=== PATIENT | male | born 1945 | race Caucasian/White ===

== ENCOUNTER 2017-03-10 22:32 | Inpatient (IN) ==
[2017-03-10] MEDS ORDERED: SALINE FLUSH 10ml SYRINGE IVF PRN (22:54)
[2017-03-10] MEDS ORDERED: GI COCKTAIL 30 ML PO ONE (22:54)
[2017-03-10] MEDS ORDERED: NS 1,000 ML IV ONE (22:55)
--- NOTE | 2017-03-10 22:58 | Emergency Department Report ---
Abdominal Pain HPI - General Stated Complaint: stomach pain Time Seen by Provider: 03/10/17 22:37 Source: patient Mode of arrival: ambulatory Limitations: no limitations - History of Present Illness HPI narrative: He is here from out of town this week. He had onset of abdominal pain 2 days ago and it has not improved much at all. 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 He states that he did recover well from that and was not evaluated after the incident. He has vomited today. Has a history of bowel obstruction in the past. C/o having a foul tasting bile taste in this mouth. Denies any fever or chills. MD complaint: abdominal pain Onset (ago): day(s) (for the last 2 days) Consistency: constant Location: diffuse Severity: moderate Quality: sharp Radiation: none Migration to: no migration Relieving factors: nothing Exacerbating factors: nothing Associated symptoms: nausea, vomiting, constipation - Related Data Home Medications Medication Instructions Recorded Confirmed Allopurinol [Zyloprim] 1 tab PO DAILY 03/10/17 03/10/17 Doxazosin Mesylate [Cardura] 4 mg PO DAILY 03/10/17 03/10/17 Tamsulosin [Flomax] 1 tab PO HS 03/10/17 03/10/17 Allergies Allergy/AdvReac Type Severity Reaction Status Date / Time shrimp Allergy Severe Anaphylactic Verified 03/10/17 23:23 Shock Review of Systems Constitutional: Denies: fever, chills, weakness Cardiovascular: Denies: chest pain, palpitations, dyspnea on exertion, edema Respiratory: Denies: cough, dyspnea, wheezes Gastrointestinal: Reports: abdominal pain, nausea, vomiting, constipation. Denies: diarrhea Integumentary: Denies: rash Neurological: Denies: headache, weakness, numbness, paresthesias PFSH HTN Surgical History: appendectomy. Small bowel obstruction secondary to adhesions. Known history of hernia due to the appendectomy surgery - Social History Smoking status: Never smoker Substance use type: does not use Alcohol intake frequency: does not drink Physical Exam - Limitations Limitations: no limitations - General General appearance: alert, in no apparent distress - Normal Exams: Neck:: Full range of motion, without adenopathy, JVD, bruits or thyromegaly Chest/Respirations:: Clear all luna, with good airflow, and symmetry bilaterally Cardiovascular:: Regular rate and rhythm, without murmur or gallop, Pulses 2+ all extremities, capillary refill, <2 seconds all extremities Abdomen:: Bowel sounds positive, no hepatosplenomegaly, masses or bruits noted Lymphatic:: No lymphadenopathy, or lymphedema noted Integumentary:: No rashes, hives, or bruising noted Neurological:: Patient is alert, and oriented Psychiatric:: Patient exhibits, appropriate attention, emotion and affect - Abdominal Exam Abdominal exam: Present: soft, distention, tenderness (TTP in all quadrants), normal bowel sounds. Absent: guarding, rebound Abdominal Pain - [facility] Narrative Medical decision making narrative: Ct scan does show an obstruction. Labs are stable, WBC is elevated. Noted 2nd degree AV block on EKG. He does deny any known history of heart block and denies any cardiac history. Did call and discuss CT findings with Dr Freitas. He does agree to admission with consultation for the obstruction. Will go ahead and place an NG tube as he has vomited in ER bile emesis. Did call and speak with Dr Mensah as well about the new diagnosis of the 2nd degree AV block. He does agree that it appears to be an AV block and does agree to consult with patient tomorrow. Does request CCU bed for admission. Did call and discuss HPI, labs, EKG, CT scan, and consults with Dr Swanson with the hospitalist group. He will admit to CCU at this time. - Differential Diagnosis Differential diagnosis: Likely: abdominal pain, constipation, diverticulitis, gastroenteritis, small bowel obstruction - Lab Data Attestation: I reviewed the patient's lab results. Result diagrams: 03/10/17 23:09 03/10/17 23:09 - Radiology Data Attestation: I reviewed the patient's radiology results. Ct abdomen/pelvis: mid small bowel obstruction which appears secondary to a ventral abdominal wall hernia. There are bilateral supraumbilical ventral abdominal wall hernias. The right-sided hernia appears to be the source of the obstruction. Disposition Clinical Impression: Small bowel obstruction, 2nd degree AV block Disposition: To [facility] Acute Care Condition: Stable Prescriptions: No Action Tamsulosin [Flomax] 1 tab PO HS Allopurinol [Zyloprim] 1 tab PO DAILY Doxazosin Mesylate [Cardura] 4 mg PO DAILY Time of Disposition: 00:21 - Seen By: midlevel
[2017-03-11] MEDS ORDERED: METOCLOPRAMIDE 10mg/2ml INJECTION IVP ONE (00:10)
[2017-03-11] MEDS ORDERED: METOCLOPRAMIDE 10mg/2ml INJECTION IVP PRN (01:02)
[2017-03-11] MEDS ORDERED: MORPHINE SULFATE 4mg INJECTION IVP PRN (01:02)
[2017-03-11] MEDS ORDERED: ONDANSETRON 4 MG/2 ML INJECTION IVP PRN (01:02)
[2017-03-11] MEDS: PANTOPRAZOLE 40 MG INJECTION IVP SCH ×2 (01:36→14:45)
[2017-03-11] MEDS: NS 1,000 ML IV SCH ×3 (01:36→22:29)
[2017-03-11 01:54] VITALS: BMI 39.8
--- NOTE | 2017-03-11 01:55 | History & Physical Report ---
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 (played with Kalia Tavongm etc). Anyway he had an appendectomy young in life and approximately 12 years ago had a bowel obstruction that resulted in adhesiolysis. Since then he has had an abdominal wall hernia related to previous surgeries. 3 days ago he had onset of abdomen pain with nausea and anorexia. He was in contact with a local surgeon (friend) who recommenced that he be seen in local ED for further assessment. 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 He was brought to the ED where his initial cardiac evaluation demonstrated a mobitz 2 rhythm without ischemia. He further had a CT of his abdomen which demonstrated a SBO. ED contacted surgeon who recommended admission and he would see in consult. ED consulted cardiology who supported the interpretation of a mobitz 2. Recommended admission into the ICU and would see in the am. The patient has never had a syncopal episode and never been informed that he had an arrhythmia in his heart. Review of Systems Review of systems: no headache, no change in vision, no neck pain, no chest pain, mild shortness of breath with out cough, did not feel heart palpitations, nasuea and has been constipated for 3 days, no focal neuro complaints. 10 point ROS otherwise neg except for outlined above. [facility] Medical History Updates: SBO, HTN, gout, BPH, morbid obesity Surgical History: appendectomy. Small bowel obstruction secondary to adhesions. Known history of hernia due to the appendectomy surgery - Social History Smoking status: Never smoker Substance use type: does not use Alcohol intake: former Alcohol intake frequency: does not drink Housing: house Medications Home Medications Medication Instructions Recorded Confirmed Type Allopurinol [Zyloprim] 1 tab PO DAILY 03/10/17 03/10/17 History Doxazosin Mesylate [Cardura] 4 mg PO DAILY 03/10/17 03/10/17 History Tamsulosin [Flomax] 1 tab PO HS 03/10/17 03/10/17 History Allergies Allergy/AdvReac Type Severity Reaction Status Date / Time shrimp Allergy Severe Anaphylactic Verified 03/10/17 23:23 Shock Exam Vital Signs: Temperature 98.2 F 03/10/17 22:40 Pulse Rate 80 03/11/17 00:45 Respiratory Rate 20 03/11/17 00:45 Blood Pressure 154/90 H 03/11/17 00:45 Pulse Oximetry 93 03/11/17 00:45 Telemetry Rhythm: Second Degree AV Block Type II Mobitz I - Constitutional Present: moderate distress, well nourished, well developed, morbidly obese, cooperative - Routine HEENT Exam Head: Present: normocephalic, atraumatic. Absent: cushingoid faces Eye: Present: EOMI, conjunctivae pink ENT: Present: mucous membranes dry - Routine Neck Exam Present: supple, full ROM. Absent: JVD - Routine Respiratory Exam Present: CTA bilaterally. Absent: prolonged expiratory phase - Routine Cardiovascular Exam Present: RRR, S1, S2, no murmur. Absent: rubs, S3 - Routine Abdominal Exam Comments: abdomen is obese, bowel sounds decreased but occasionally heard, mild tender to palpation (1 L removed from stomch with emesis and ng tube when I saw), - Routine Extremities Exam Present: full ROM - Routine Back/Spine/Pelvis Exam Back/Spine: Present: full ROM - Routine Skin Exam Present: intact - Routine Neurological Exam Present: alert, oriented X3. Absent: motor deficit - Routine Psychiatric Exam Present: normal affect, normal thought process Results - Labs CBC & Chem 7: 03/10/17 23:09 03/10/17 23:09 - ABG Interpretation Additional comments: EKG mobitz 2 (confirmed by cardiology) CT abdomen and pelvis with SBO, ventral hernia with bowel in hernia, no incarceration identified Assessment and Plan (1) Small bowel obstruction Status: Acute (2) 2nd degree AV block Status: Acute (3) Hypertension Status: Acute (4) Morbid obesity Status: Acute (5) BPH (benign prostatic hyperplasia) Status: Acute (6) Gout Status: Acute Assessment and Plan: 1. admit into the ICU 2. rule out with serial enzymes and consult cardiology for further evaluation. Would anticipate at minimum an echo to be done. Probable need nuc prior to any surgery if surgery is needed 3. NPO with NG low intermittent suction. Obviously the nidus for obstruction is reocurrance of adhessions. 1L already removed greater than 50% chance will need surgery to resolve. would like to avoid surgery for multiple reasons, not the least of which is cardaic arrhythmia. Continue NPO, defer to surgery for further assessment. Note will repeat labs this am, will check TSH 4. Patient will have cardura held and will use hydralazine prn 5. Patient is mild hyperglycemic, check a1c along with lipid panel 6. SCD, hold lovenox in case urgent surgery 7. protonix for PPI prophylaxis This patient is moderately ill. admission to ICU indicated to watch rhythm more closely. Defer to Cardiology and Surgery for next steps DVT Prophylaxis: SCD's GI Prophylaxis: Protonix Resuscitation Status: Full Code - Time spent with patient Time with patient PN: 50 minutes Hospital Course Summary Disclaimer: The visit summary below is not to be considered part of the above Progress Note. <Enmanuel Mcnair P - Last Filed: 03/16/17 16:01> History of Present Illness Date: 03/16/17 [facility] Patient Stated Medical History Cardiac Arrhythmia Yes: current Hypertension Yes Hiatal Hernia Yes Obstructive Bowel Yes Hx Benign Prostatic Yes Hyperplasia Other Yes: urinary retention Other Musculoskeletal Yes: gout Family History: Reviewed and non-contributory Exam Vital Signs: Temperature 98.7 F 03/11/17 16:00 Pulse Rate 79 03/11/17 16:15 Respiratory Rate 24 03/11/17 16:15 Blood Pressure 190/87 H 03/11/17 16:02 Pulse Oximetry 97 03/11/17 16:15 Height/Weight/BMI: Height 6 ft 1 in Weight 137 kg Body Mass Index 39.8 Results - Labs CBC & Chem 7: 03/16/17 04:10 03/16/17 04:10 Assessment and Plan (1) Small bowel obstruction Status: Resolved (2) 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 (3) Hypertension Status: Chronic (4) Morbid obesity Status: Chronic (5) BPH (benign prostatic hyperplasia) Status: Chronic (6) Gout Status: Chronic Assessment and Plan: Fully commented document already signed. Agree with above contents. Please see 19:14 03/11/17 H&P Hospital Course Summary Disclaimer: The visit summary below is not to be considered part of the above Progress Note.
[2017-03-11] MEDS ORDERED: MORPHINE SULFATE 2mg INJECTION IVP PRN (07:00)
--- NOTE | 2017-03-11 08:00 | CT Scan Report ---
EXAM: CT abdomen pelvis wo con DATE: 03/10/2017 HISTORY: abdominal pain COMPARISON: No prior studies are available for comparison TECHNIQUE: CT images were obtained of the abdomen and pelvis without IV contrast. The current CT scan was performed using radiation dose-reduction techniques. FINDINGS: LUNG BASES: No acute parenchymal process is identified. There is a calcified granuloma at the right lung base. Calcified right hilar and subcarinal lymph nodes are visualized. The heart appears mildly enlarged. There is no pericardial effusion. LIVER: Mildly enlarged measuring 19.8 cm showing no obvious discrete lesions on this unenhanced exam. SPLEEN: Mildly enlarged measuring 14.9 cm showing several scattered calcified splenic granulomas. GALLBLADDER: Surgically absent. PANCREAS: Unenhanced appearance is mildly atrophic and otherwise unremarkable. ADRENAL GLANDS: Not enlarged. KIDNEYS: Symmetrical size showing a several bilateral tiny nonobstructing renal calculi. There is nonspecific bilateral perinephric stranding. There is is no evidence of hydronephrosis, hydroureter or ureterolith. VASCULAR: The abdominal aorta and IVC are normal caliber. There is mild scattered plaque formation the abdominal aorta and iliac arteries. LYMPH NODES: No pathologic adenopathy is seen in the abdomen or pelvis. STOMACH BOWEL LOOPS: Stomach is moderately distended with ingested fluid. There is a small hiatal hernia. There is mild dilatation of mid small bowel loops secondary to bilateral para midline supra umbilical ventral hernias have both small bowel and mesenteric fat and involvement. The right-sided ventral hernia is associated with the dilated small bowel loops with air-fluid levels. The right-sided ventral hernia not does not appear to be associated with any obstructive changes of the involved small bowel creating small bowel obstruction. Colonic loops are normal caliber showing moderate retained fecal material. Several diverticula are seen along the course of the colon without evidence of diverticulitis. Appendix is normal. URINARY BLADDER: Normal size showing no wall thickening or intraluminal filling defects. PROSTATE: Enlarged measuring 6.9 x 8.1 cm. There is associated mass effect on the base of the bladder. OSSEOUS STRUCTURES: Advanced degenerative changes are seen at the lumbosacral junction and there are otherwise mild to moderate degenerative disc changes in the lumbar spine region. Moderate degenerative changes are seen in the lower thoracic spine. PERITONEAL CAVITY: No free air or free fluid ABDOMINAL WALL: Bilateral midline supraumbilical ventral hernias which demonstrate mesenteric fat and small bowel involvement. The right-sided ventral hernia associated with the dilated small bowel loops and is likely be etiology of small bowel obstruction. IMPRESSION: 1. Mid small bowel obstruction which appears to be secondary to a ventral abdominal wall hernia. There are bilateral supraumbilical ventral hernias the right-sided hernia appears to be the site of the obstruction. 2. Prostamegaly. 3. Tiny nonobstructing bilateral renal calculi. 4. Cardiomegaly. 5. Old granulomatous disease. 6. Gallbladder is surgically absent. 7. Mild hepatosplenomegaly. A pulmonary report was provided by [facility] medially following the initial review of this examination 03/10/2017 11:33 PM .
[2017-03-11] MEDS ORDERED: PNEUMOCOCCAL 13 VACCINE 0.5ml INJECTION IM ONE (10:00)
[2017-03-11] MEDS ORDERED: INFLUENZA VAC High Dose 2017-18 (Fluzone HD*) (>=65yo) 0.5ml IM ONE (10:00)
[2017-03-11] MEDS: CLINDAMYCIN PB 300 MG/50 ML BAG IV SCH ×3 (10:48→22:28)
[2017-03-11] MEDS: SORE THROAT SPRAY 20ml PO PRN ×2 (12:19→15:00)
[2017-03-11] MEDS: HYDRALAZINE 20 MG/ML INJECTION IVP PRN ×2 (14:46→22:27)
[2017-03-11] MEDS: LISINOPRIL 10 MG TABLET PO SCH ×2 (18:25→20:55)
--- NOTE | 2017-03-11 19:16 | History & Physical Report ---
History of Present Illness Date: 03/12/17 Chief complaint: syncopal HPI: This 72-year-old man who had an episode of lightheadedness and syncope yesterday was brought into the emergency room. Found to have new onset obits type II heart block. Allgood pain from prior to syncopal episode was relative to the colicky chronic abdominal hernia. Seen this morning after being brought in he is comfortable and has no complaints. Abdominal pain is empty significantly in he is denying any chest pain diaphoresis nausea or shortness of breath. The following notation by Dr. 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 (played with Kalia Horne etc). Anyway he had an appendectomy young in life and approximately 12 years ago had a bowel obstruction that resulted in adhesiolysis. Since then he has had an abdominal wall hernia related to previous surgeries. 3 days ago he had onset of abdomen pain with nausea and anorexia. He was in contact with a local surgeon (friend) who recommenced that he be seen in local ED for further assessment. 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 He was brought to the ED where his initial cardiac evaluation demonstrated a mobitz 2 rhythm without ischemia. He further had a CT of his abdomen which demonstrated a SBO. ED contacted surgeon who recommended admission and he would see in consult. ED consulted cardiology who supported the interpretation of a mobitz 2. Recommended admission into the ICU and would see in the am. The patient has never had a syncopal episode and never been informed that he had an arrhythmia in his heart. Review of Systems - Constitutional Constitutional: Absent: fever(s), night sweats, weight loss - EENMT Eyes: Absent: diplopia Mouth/Throat: Present: pain, caries. Absent: sores, ulcers - Cardiovascular Cardiovascular: Present: syncope. Absent: chest pain, palpitations Vascular: Absent: intermittent claudication - Respiratory Respiratory: Absent: cough, dyspnea, dyspnea on exertion - Gastrointestinal Gastrointestinal: Present: abdominal pain. Absent: change in stool character, coffee ground emesis, diarrhea - Genitourinary Genitourinary: Absent: dysuria, flank pain - Musculoskeletal Musculoskeletal: Absent: abnormal gait, deformity - Neurological Neurological: Present: dizziness. Absent: confusion, convulsions, focal weakness - Psychiatric Psychiatric: Absent: abnormal sleep pattern, depression - Endocrine Endocrine: Absent: excessive sweating, palpitations PFSH Patient Stated Medical History Cardiac Arrhythmia Yes: current Hypertension Yes Hiatal Hernia Yes Obstructive Bowel Yes Hx Benign Prostatic Yes Hyperplasia Other Yes: urinary retention Other Musculoskeletal Yes: gout Medical History Updates: SBO, HTN, gout, BPH, morbid obesity. I agree with the social medical and surgical assessment by Dr. Swanson with the addition of noncontributory family history Surgical History: appendectomy. Small bowel obstruction secondary to adhesions. Known history of hernia due to the appendectomy surgery Family History: Family history reviewed and noncontributory - Social History Smoking status: Never smoker Medications Home Medications Medication Instructions Recorded Confirmed Type Allopurinol [Zyloprim] 1 tab PO DAILY 03/10/17 03/10/17 History Doxazosin Mesylate [Cardura] 4 mg PO DAILY 03/10/17 03/10/17 History Tamsulosin [Flomax] 1 tab PO HS 03/10/17 03/10/17 History Allergies Allergy/AdvReac Type Severity Reaction Status Date / Time shrimp Allergy Severe Anaphylactic Verified 03/10/17 23:23 Shock Exam Vital Signs: Temperature 98.7 F 03/11/17 16:00 Pulse Rate 79 03/11/17 16:15 Respiratory Rate 24 03/11/17 16:15 Blood Pressure 190/87 H 03/11/17 16:02 Pulse Oximetry 97 03/11/17 16:15 Telemetry Rhythm: Second Degree AV Block Type II Mobitz I Height/Weight/BMI: Height 6 ft 1 in Weight 137 kg Body Mass Index 39.8 - Constitutional Present: well nourished, well developed, obese - Routine HEENT Exam Head: Present: normocephalic, atraumatic Eye: Present: EOMI, normal accommodation ENT: Present: mucous membranes moist, dentition normal - Routine Neck Exam Present: supple. Absent: JVD - Routine Chest/Breast/Axilla Exam Chest wall: Absent: tenderness - Routine Respiratory Exam Present: CTA bilaterally. Absent: dyspnea, wheezes - Routine Cardiovascular Exam Present: RRR, S1, S2. Absent: murmur - Routine Abdominal Exam Present: soft, normoactive bowel sounds, tenderness, hernia, surgical scars - Routine Extremities Exam Present: normal capillary refill - Routine Skin Exam Present: dry, warm - Routine Neurological Exam Present: alert, oriented X3, CN II-XII intact - Routine Psychiatric Exam Present: normal affect Results - Labs CBC & Chem 7: 03/12/17 12:23 03/11/17 04:41 Assessment and Plan (1) Small bowel obstruction Current visit: Yes Status: Acute (2) 2nd degree AV block Current visit: Yes Status: Acute (3) Hypertension Current visit: Yes Status: Acute (4) Morbid obesity Current visit: Yes Status: Acute (5) BPH (benign prostatic hyperplasia) Current visit: Yes Status: Acute (6) Gout Current visit: Yes Status: Acute Assessment and Plan: Read and appreciate note by Dr. Swanson. Patient will remain in the ICU due to elevated risk of declining into terminal arrhythmia. Continue hydralazine for pressure control abdominal discomfort is largely resolved with NG tube. Although patient does have an elevated white count appears to be no source of infection lab work is been reassuring. We will repeat CBC and metabolic panel tomorrow have discussed the case with Dr. Mensah earlier in the day Dr. Hahn has seen for consultation. I believe he intends conservative treatment DVT Prophylaxis: SCD's Resuscitation Status: Full Code - Time spent with patient Time with patient PN: 50 minutes Hospital Course Summary Disclaimer: The visit summary below is not to be considered part of the above Progress Note.
--- NOTE | 2017-03-11 20:19 | Cardiology Consult Note ---
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 No prior syncope or presyncope He climbs 2 flights of stairs at home without angina. He says he used to exercise on a stationary bike for about 10-15 minutes about a year ago without angina. He currently does not exercise. 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 Noted to have elevated white count no fever or chills. Positive for constipation positive for nausea and vomiting improved only after NG tube insertion. Remains nothing by mouth. Has history of small bowel obstruction required the previous surgery. History of ruptured appendix in 1976. History of ventral hernia. He has a elevated white count without fever or chills no symptoms suggestive of a respiratory urinary or skin infection. He is been treated With IV clindamycin. No known prior heart disease. Never had a stress test or heart catheterization. Admitted to hospitalist service for further management. I was asked to consult regarding second-degree AV block and presyncope Review of Systems All systems PM: 10-point ROS was reviewed, no additional remarkable complaints except - Cardiovascular Cardiovascular: Absent: chest pain, palpitations, syncope, orthopnea, edema, cyanosis - Respiratory Respiratory: Absent: dyspnea, hemoptysis - Gastrointestinal Gastrointestinal: Present: abdominal pain, constipation - Psychiatric Psychiatric: Absent: anxiety, depression [facility] Patient Stated Medical History Cardiac Arrhythmia Yes: current Hypertension Yes Hiatal Hernia Yes Obstructive Bowel Yes Hx Benign Prostatic Yes Hyperplasia Other Yes: urinary retention Other Musculoskeletal Yes: gout Medical History Updates: SBO, HTN, gout, BPH, morbid obesity. I agree with the social medical and surgical assessment by Dr. Swanson with the addition of noncontributory family history Surgical History: appendectomy. Small bowel obstruction secondary to adhesions. Known history of hernia due to the appendectomy surgery - Social History Smoking status: Never smoker Substance use type: does not use Alcohol intake frequency: holidays/special occasions only Household members: spouse Current residence: Apartment/Private Home Medications Home Medications Medication Instructions Recorded Confirmed Type Allopurinol [Zyloprim] 1 tab PO DAILY 03/10/17 03/16/17 History Doxazosin Mesylate [Cardura] 4 mg PO DAILY 03/10/17 03/16/17 History Tamsulosin [Flomax] 0.4 tab PO HS 03/10/17 03/16/17 History Allergies Allergy/AdvReac Type Severity Reaction Status Date / Time shrimp Allergy Severe Anaphylactic Verified 03/16/17 20:02 Shock Exam Vital signs: Temperature 98.7 F 03/11/17 16:00 Pulse Rate 79 03/11/17 16:15 Respiratory Rate 24 03/11/17 16:15 Blood Pressure 190/87 H 03/11/17 16:02 Pulse Oximetry 97 03/11/17 16:15 - Constitutional no acute distress, obese - Routine HEENT Exam Head: Present: normocephalic, atraumatic Eye: Present: EOMI, PERRL ENT: Present: mucous membranes moist - Routine Neck Exam Present: supple, normal carotid upstroke. Absent: JVD, carotid bruit, lymphadenopathy, thyromegaly - Routine Respiratory Exam Present: CTA bilaterally - Routine Cardiovascular Exam Present: irregular rhythm. Absent: RRR - Routine Abdominal Exam Present: soft, normoactive bowel sounds, tenderness (mild). Absent: rebound, guarding, rigid - Routine Extremities Exam Present: no edema. Absent: cyanosis, clubbing, edema - Routine Skin Exam Present: intact. Absent: cyanosis, erythema - Routine Neurological Exam Present: alert, oriented X3, CN II-XII intact, vision grossly intact, hearing grossly intact, normal speech. Absent: sensory deficit, motor deficit, facial asymmetry - Routine Psychiatric Exam Present: normal affect, normal thought process, cooperative, good judgment Results 03/16/17 04:10 03/16/17 04:10 Cardiac Enzymes 03/11/17 03/11/17 03/11/17 Range/Units 04:41 04:41 10:48 AST 19 (17-59) U/L Troponin I < 0.012 < 0.012 (0-0.12) ng/ml Lipids 03/11/17 Range/Units 04:41 Triglycerides 78 (40-160) MG/DL Cholesterol 190 (132-199) MG/DL HDL Cholesterol 37 L (40-60) MG/DL Cholesterol/HDL Ratio 5.1 H (0-5.0) RATIO CBC 03/11/17 Range/Units 04:41 WBC 13.7 H (4.5-11.0) T/MM3 RBC 5.10 (4.50-5.90) M/MM3 Hgb 16.2 (13.5-17.5) GM/DL Hct 47.9 (41-53) % Plt Count 133 (130-400) T/MM3 Neut # (Auto) 11.4 H (1.8-7.7) T/MM3 Lymph # (Auto) 1.3 (1-4.8) T/MM3 [place] # (Auto) 1.0 H (0-0.8) T/MM3 Eos # (Auto) 0.0 (0-0.5) T/MM3 Baso # (Auto) 0.0 (0-0.2) T/MM3 Comprehensive Metabolic Panel 03/11/17 Range/Units 04:41 Sodium 142 (134-144) MEQ/L Potassium 3.9 (3.6-5) MEQ/L Chloride 106 (98-107) MEQ/L Carbon Dioxide 27 (22-30) MEQ/L BUN 12.0 (9-20) MG/DL Creatinine 1.0 (0.8-1.5) MG/DL Glucose 127 H (75-110) MG/DL Calcium 8.2 L (8.4-10.2) MG/DL AST 19 (17-59) U/L ALT 41 (21-72) U/L Alkaline Phosphatase 75 (38-126) U/L Total Protein 6.7 (6.3-8.2) G/DL Albumin 3.7 (3.5-5.0) G/DL Intake and Output 03/11/17 03/11/17 03/11/17 06:59 14:59 22:59 Intake Total 440 / 1440 610 / 610 50 / 50 Output Total 1275 / 1275 490 / 490 100 / 100 Balance -835 / 165 120 / 120 -50 / -50 Intake: IV 440 / 1440 610 / 610 50 / 50 Clindamycin Pb 300 mg In 50 / 50 50 / 50 50 ml @ 100 mls/hr IV Q6H SAM Rx#:[id number] Ns 1,000 ml @ 100 mls/hr 440 / 1440 560 / 560 IV .Q10H SAM Rx#: [id number] Output: Urine 375 / 375 490 / 490 100 / 100 Gastric Drainage 900 / 900 Right Nare 900 / 900 Other: Urine Appearance Clear Clear Clear Urine Color Straw Straw Straw Weight 137 kg EKG interpretations - Dysrhythmias Sinus rhythms and dysrhythmias: sinus rhythm - Blocks, axis, hypertrophy, ST abn AV and intraventricular conduction: 2 to 1 AV block, Mobitz I 2 AV block ( Wenckebach block), right bundle branch block (fixed/intermittent, complete/ incomplete) (no acute changes of ischemia or pathological Q waves) Assessment and Plan - Assessment and Plan (1) 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 2:1 AV block and Wenckebach with underlying RBBB. Symptomatic with near syncope. A permanent pacemaker implant is recommended. Detailed Discussion with Drs. Moraes and Paz regarding timeline of the procedure. Due to leukocytosis, small bowel obstruction that might need surgical intervention, and IV antibiotics on board would tentatively plan on a permanent pacemaker implant on Wednesday. Should a surgery for a small bowel obstruction be needed, then we would place a temporary pacemaker wire to allow him to undergo anesthesia and surgery. At this time he exhibits a stable rhythm and no immediate need for that. Risks and benefits and indications and alternatives of permanent pacemaker implant discussed at length with the patient is in agreement. Risks including but not limited to bleeding lifelong risk of infection and pneumothorax leading chest tube and rarely life-threatening or fatal complications. Also discussed with him and stated future and need for pacemaker battery replacements in the years to come. He is in agreement. Will obtain an echocardiogram regarding LV function and wall motion. We'll repeat 12-lead EKG and make sure there is a troponin level this admission. Also advised to undergo a stress test most likely can be done as an outpatient when he returns to his home state of [place]. (2) Small bowel obstruction Status: Resolved (3) Hypertension Status: Chronic Add lisinopril Elected not to use amlodipine in order not to impact GI motility IV hydralazine when necessary for reliable bioavailability (4) Morbid obesity Status: Chronic (5) BPH (benign prostatic hyperplasia) Status: Inactive (6) Gout Status: Chronic Hospital Course Summary Disclaimer: The visit summary below is not to be considered part of the above Progress Note.
[2017-03-12] MEDS ORDERED: FALL RISK - PHARMACY CONSULT XX ONE (02:34)
[2017-03-12] MEDS: CLINDAMYCIN PB 300 MG/50 ML BAG IV SCH ×4 (03:51→22:25)
[2017-03-12] MEDS: PANTOPRAZOLE 40 MG INJECTION IVP SCH ×2 (04:53→12:34)
[2017-03-12] MEDS ORDERED: DIATRIZOATE MEGLUMINE/SOD. (66%/10%) 120ml SOLN ONE (09:06)
[2017-03-12] MEDS: NS 1,000 ML IV SCH ×4 (09:34→21:00)
--- NOTE | 2017-03-12 09:39 | Echocardiogram ---
DATE OF SERVICE 03/11/2017 INDICATION Presyncope. Second-degree AV block. TECHNICAL QUALITY Technically good 2-D, M-mode, Doppler echocardiographic images were submitted for interpretation. FINDINGS 1. CARDIAC CHAMBERS. All cardiac chamber measurements are normal. Aortic root diameter is normal. RV size and contractility appear normal. 2. LEFT VENTRICLE. Wall thickness is normal. Wall motion analysis is normal. Systolic function is normal. EF is estimated about 60%. There is grade I/IV diastolic dysfunction present. 3. VALVES. Aortic and mitral valve exhibit mild sclerotic changes. Valve excursion is normal. Tricuspid valve structure and motion appear normal. Normal valve excursion. 4. DOPPLER. Analysis shows mild to moderate tricuspid regurgitation with normal systolic PA pressure, trace pulmonic insufficiency, trace mitral regurgitation. Peak flow velocity at the aortic valve of 1.8 m/sec with mean pressure gradient of only 8 mmHg compared with 1.2 m/sec at the LVOT level, which is indicative of nonsignificant aortic stenosis. 5. No evidence of pericardial effusion, intracardiac masses, thrombi, vegetations or shunts. Limited view of IVC suggests normal central venous pressure. IMPRESSION 1. Normal LV systolic function, EF of 60% with mild diastolic dysfunction. 2. Mild sclerotic valvular disease without significant aortic valve stenosis. MTDD
--- NOTE | 2017-03-12 09:58 | XRay Report ---
EXAM: XR KUB w upright DATE: 03/12/2017 8:01 AM Encounter: Initial INDICATION: Follow Bowel Obstruction COMPARISON: Abdominal CT 03/10/17 Technique: Upright and supine AP abdominal radiographs were obtained. Findings: Enteric tube in place with tip in the proximal stomach. Mild to moderate colonic gas and stool. Mildly prominent gas filled small bowel loops in the left mid abdomen. No intraperitoneal free air. Cholecystectomy clips noted. No acute osseous abnormality identified. The visualized lung bases appear clear. Impression: Mildly prominent gas filled small bowel loops in the left mid abdomen with mild to moderate colonic gas and stool present, with an overall non-obstructive bowel gas pattern radiographically. .
[2017-03-12] MEDS: DOXAZOSIN 4 MG TABLET PO SCH (12:27)
[2017-03-12] MEDS: LISINOPRIL 10 MG TABLET PO SCH ×2 (12:28→22:23)
[2017-03-12] MEDS: ALLOPURINOL 300 MG TABLET PO SCH (12:29)
[2017-03-12] MEDS: COLCHICINE 0.6 MG TABLET PO SCH (12:31)
--- NOTE | 2017-03-12 13:27 | XRay Report ---
EXAM: XR small bowel follow through DATE: 03/12/2017 12:00 AM ENCOUNTER: Initial HISTORY: small bowel obstruction COMPARISON: Abdominal radiographs of the same day, abdominal CT 03/10/2017 TECHNIQUE: Single contrast Gastrografin small bowel follow-through was performed with administration of the contrast through the patient's indwelling enteric tube. Sequential overhead evaluation was performed. FINDINGS: The abdominal radiograph of the same day showed a nonobstructive bowel gas pattern. SMALL BOWEL FOLLOW THROUGH FINDINGS: There is normal course and caliber of the duodenal sweep. The ligament of Treitz is seen to the left of the midline. Contrast traverses the small bowel in approximately 1 hour and 15 minutes. The mucosal folds, caliber and position of the small bowel are unremarkable. No constant intraluminal filling defects or areas of stricture are seen. The terminal ileum appears unremarkable. IMPRESSION: Passage of contrast through the small bowel and into the colon within one hour and 15 minutes, without evidence of obstruction. .
--- NOTE | 2017-03-12 13:46 | Progress Note ---
DATE OF VISIT 03/12/2017 REASON FOR VISIT Follow bowel obstruction. SUBJECTIVE Kenneth was just up to the bathroom and was not able to pass any stool. He did pass a large amount of flatus. He says he still has some abdominal tenderness but no pain. OBJECTIVE VITAL SIGNS: Temperature 98.6, pulse 73, blood pressure 151/73, respiratory rate 20, oxygen saturation 94% on room air. GENERAL: The patient is awake, alert, in no acute distress. He has been up out of bed this morning. ABDOMEN: Soft, obese, nontender. Both of his incisional hernias remained fully reducible. IMPRESSION 1. Partial small bowel obstruction secondary to incisional hernias - his hernias are fully reducible. 1. Incisional ventral hernias x 2 - reducible. 2. Obesity with BMI of 39.8. 3. Second-degree AV block. PLAN 1. Await KUB with upright. If KUB with upright shows a reasonable bowel gas pattern, then I will have Radiology perform a Gastrografin small bowel follow- through to determine if his obstruction has fully resolved. It may be therapeutic as well as diagnostic. 2. I think it would be fine to give him some oral medications and clamp his NG. 3. NPO other than meds until radiology studies are performed. 4. Recheck CBC. RUMAD
--- NOTE | 2017-03-12 15:58 | Progress Note ---
- Date 03/12/17 Subjective: Initially away for Gastrografin study. Patient then seen in the ICU this afternoon. Appears comfortable and concerned mostly with the nasogastric tube. The report of the results small bowel obstruction Gastrografin study has already reached and he is pleased with the idea of resuming at least a liquid diet. Patient has had a bowel movement. Patient is entertaining the idea of returning back to his home in [place] without placement of a pacemaker or any abdominal surgery at this time Objective Vital signs: Temperature 98.6 F 03/12/17 04:00 Pulse Rate 61 03/12/17 12:00 Respiratory Rate 20 03/12/17 04:00 Blood Pressure 151/73 H 03/12/17 04:00 Pulse Oximetry 94 03/12/17 04:00 Rhythm: Second Degree AV Block Type II Mobitz I Height/Weight/BMI: Height 6 ft 1 in Weight 137 kg Body Mass Index 39.8 Results - Labs CBC & Chem 7: 03/12/17 12:23 03/11/17 04:41 Assessment and Plan (1) Small bowel obstruction Current visit: Yes Status: Acute (2) 2nd degree AV block Current visit: Yes Status: Acute (3) Hypertension Current visit: Yes Status: Acute (4) Morbid obesity Current visit: Yes Status: Acute (5) BPH (benign prostatic hyperplasia) Current visit: Yes Status: Acute (6) Gout Current visit: Yes Status: Acute Assessment and Plan: Patient initially requested to forgo treatment in return to [place] for cardiology placement of pacemaker and surgical reduction of his ventral hernia. There was extensive discussion in on sequences and he was initially quite sad on returning, however Dr. Mensah was able to convince him to not travel with the increased risk. I've discussed the patient's condition with Dr. Mensah. He is an agreement the patient can move out of the ICU today. Will continue on telemetry. Plan is for pacemaker on Wednesday.Dr. Hahn tends to continue conservative treatment while in hospital. Patient is to move the floor and graduate to liquid diet at this time DVT Prophylaxis: SCD's Resuscitation Status: Full Code - Time spent with patient Time with patient PN: 35 minutes Hospital Course Summary Disclaimer: The visit summary below is not to be considered part of the above Progress Note.
[2017-03-12] MEDS ORDERED: KETOROLAC 15 MG/ML INJECTION IVP PRN (17:09)
[2017-03-12] MEDS: IBUPROFEN 200 MG TABLET PO PRN (19:21)
--- NOTE | 2017-03-12 21:01 | Cardiology Progress Note ---
Subjective Interval history: feeling well, denies cp dyspena or dizziness. has been walking down the [place] . started liquid diet. + BM . SBFT showed passage of barium through. denies nausea or abd pain. NG tube out.pt had questions regarding the pacemaker surgery what to expect ,risks and benefits and recommended timeline. daughter at bedside visiting. Exam Vital signs: Temperature 100.2 F 03/12/17 15:45 Pulse Rate 92 03/12/17 19:40 Respiratory Rate 35 H 03/12/17 19:40 Blood Pressure 115/70 03/12/17 19:40 Pulse Oximetry 97 03/12/17 19:40 - Constitutional no acute distress, obese - Routine HEENT Exam Head: Present: normocephalic Eye: Present: EOMI, PERRL ENT: Present: mucous membranes moist - Routine Neck Exam Present: supple, normal carotid upstroke. Absent: JVD, carotid bruit, lymphadenopathy, thyromegaly - Routine Respiratory Exam Present: CTA bilaterally - Routine Cardiovascular Exam Present: murmur (soft 1/6 sm best heard at the base of the heart), irregular rhythm - Routine Abdominal Exam Present: soft, normoactive bowel sounds, non distended, non tender. Absent: rebound, guarding - Routine Skin Exam Present: intact, dry. Absent: cyanosis, erythema - Routine Neurological Exam Present: alert, oriented X3, CN II-XII intact, moving all extremities, vision grossly intact, hearing grossly intact, normal speech. Absent: motor deficit, facial asymmetry - Routine Psychiatric Exam Present: normal affect, normal thought process, cooperative Assessment and Plan - Assessment and Plan (1) 2nd degree AV block Current visit: Yes Status: Acute stable fro transfer out to telemetry bed pt wants to proceed with PPM tentatively setMonday, risks and benefits reiterated to pt. d/t Temp 100.2 I'm going to order BCX.he s on Clindamycin per primary service (2) Small bowel obstruction Current visit: Yes Status: Acute (3) Hypertension Current visit: Yes Status: Acute (4) Morbid obesity Current visit: Yes Status: Acute (5) BPH (benign prostatic hyperplasia) Current visit: Yes Status: Acute (6) Gout Current visit: Yes Status: Acute Hospital Course Summary Disclaimer: The visit summary below is not to be considered part of the above Progress Note.
[2017-03-12] MEDS: TAMSULOSIN 0.4 MG CAPSULE PO SCH (22:23)
[2017-03-13] MEDS: PANTOPRAZOLE 40 MG INJECTION IVP SCH ×2 (01:39→13:18)
[2017-03-13] MEDS: CLINDAMYCIN PB 300 MG/50 ML BAG IV SCH ×4 (04:33→22:00)
[2017-03-13] MEDS: IBUPROFEN 200 MG TABLET PO PRN ×3 (04:49→18:50)
[2017-03-13] MEDS: NS 1,000 ML IV SCH ×4 (06:40→21:26)
[2017-03-13] MEDS: COLCHICINE 0.6 MG TABLET PO SCH (09:49)
[2017-03-13] MEDS: DOXAZOSIN 4 MG TABLET PO SCH (09:51)
[2017-03-13] MEDS: LISINOPRIL 10 MG TABLET PO SCH ×2 (09:51→22:00)
[2017-03-13] MEDS: ALLOPURINOL 300 MG TABLET PO SCH (09:52)
--- NOTE | 2017-03-13 20:23 | Progress Note ---
- Date 03/13/17 Subjective: Patient seen ambulating freely on the floor. Denying any complications at this time other than some pain in fingers and toes secondary to a gout flare. He states that is however improving from yesterday since restarting his allopurinol. He again declines colchicine due to the side effects of diarrhea Objective Vital signs: Temperature 98.1 F 03/13/17 20:00 Pulse Rate 61 03/13/17 20:00 Respiratory Rate 18 03/13/17 20:00 Blood Pressure 132/67 03/13/17 20:00 Pulse Oximetry 96 03/13/17 20:00 Rhythm: Second Degree AV Block Type II Mobitz I Height/Weight/BMI: Height 6 ft 1 in Weight 137.7 kg Body Mass Index 39.8 - Constitutional Present: no acute distress, well nourished, well developed, obese - Routine HEENT Exam Head: Present: normocephalic, atraumatic Eye: Present: EOMI, PERRL ENT: Present: mucous membranes moist, dentition normal - Routine Respiratory Exam Present: CTA bilaterally. Absent: wheezes - Routine Cardiovascular Exam Present: RRR. Absent: murmur - Routine Abdominal Exam Present: soft, normoactive bowel sounds, tenderness, hernia - Routine Extremities Exam Present: normal capillary refill. Absent: clubbing, no edema - Routine Skin Exam Present: dry, warm - Routine Neurological Exam Present: alert, oriented X3, CN II-XII intact - Routine Lymphatic Exam Lymphatic: Absent: adenopathy - Routine Psychiatric Exam Present: normal affect, cooperative, good insight Results - Labs CBC & Chem 7: 03/12/17 12:23 03/11/17 04:41 Microbiology Results: Microbiology 03/12/17 23:20 Peripheral/Iv Start Blood Culture - Preliminary Culture Initiated - Results Pending 03/12/17 23:22 Peripheral/Iv Start Blood Culture - Preliminary Culture Initiated - Results Pending Assessment and Plan (1) Small bowel obstruction Current visit: Yes Status: Acute (2) 2nd degree AV block Current visit: Yes Status: Acute (3) Hypertension Current visit: Yes Status: Acute (4) Morbid obesity Current visit: Yes Status: Acute (5) BPH (benign prostatic hyperplasia) Current visit: Yes Status: Acute (6) Gout Current visit: Yes Status: Acute Assessment and Plan: Patient is maintaining interest in pacemaker placement anticipated Wednesday. Discussed case with Dr. Mensah again today. He states that the patient is scheduled for 11 AM Wednesday assuming that no unexpected delays proposed themselves. Patient's white count continues to decline and blood cultures of been drawn Patient's gout does not have a significant clinical manifestations but he does express some discomfort. He is refuse the Toradol but is taking ibuprofen on a frequent a frequent as needed routine that resembles scheduled maintenance. At this time the small bowel obstruction appears to be resolving itself and patient is on for liquid diet. The plan is to have the hernia surgery performed once he returns home to [place] and is established with local cardiology and surgery DVT Prophylaxis: SCD's Resuscitation Status: Full Code - Time spent with patient Time with patient PN: 25 minutes Hospital Course Summary Disclaimer: The visit summary below is not to be considered part of the above Progress Note.
[2017-03-13] MEDS: TAMSULOSIN 0.4 MG CAPSULE PO SCH (22:00)
--- NOTE | 2017-03-13 22:35 | Cardiology Progress Note ---
Subjective Interval history: feeling well, denies cp, dyspena or dizziness. has been walking down the [place] multiple times . started liquid diet. liquid BM. .pt had questions regarding the pacemaker surgery what to expect ,risks and benefits and recommended timeline. daughter at bedside visiting.she asked a lot of questions denies fever or chills c/o pain R ankle similar to his previous gout. labs reviewed wbc 11 telemetry still SR with 2nd d avb BCX pend. Exam Vital signs: Temperature 98.1 F 03/13/17 20:00 Pulse Rate 61 03/13/17 20:00 Respiratory Rate 18 03/13/17 20:00 Blood Pressure 132/67 03/13/17 20:00 Pulse Oximetry 96 03/13/17 20:00 - Constitutional no acute distress, obese - Routine HEENT Exam Head: Present: normocephalic, atraumatic Eye: Present: EOMI, PERRL ENT: Present: mucous membranes moist - Routine Neck Exam Present: normal carotid upstroke. Absent: JVD, carotid bruit, lymphadenopathy, thyromegaly - Routine Respiratory Exam Present: CTA bilaterally - Routine Cardiovascular Exam Present: RRR, murmur (1/6). Absent: JVD - Routine Abdominal Exam Present: soft, normoactive bowel sounds, non distended, non tender. Absent: organomegaly - Routine Extremities Exam Present: edema (mild w slight redness R ankle), normal capillary refill. Absent : cyanosis, clubbing - Routine Skin Exam Present: intact, dry. Absent: cyanosis, erythema - Routine Neurological Exam Present: alert, oriented X3, CN II-XII intact, moving all extremities, vision grossly intact, hearing grossly intact, normal speech. Absent: motor deficit, facial asymmetry - Routine Psychiatric Exam Present: normal affect, normal thought process, cooperative Assessment and Plan - Assessment and Plan (1) 2nd degree AV block Current visit: Yes Status: Acute PPM planned for Wednesday again answered many questions about surgery and post op care (2) Small bowel obstruction Current visit: Yes Status: Acute (3) Hypertension Current visit: Yes Status: Acute (4) Morbid obesity Current visit: Yes Status: Acute (5) BPH (benign prostatic hyperplasia) Current visit: Yes Status: Acute (6) Gout Current visit: Yes Status: Acute Hospital Course Summary Disclaimer: The visit summary below is not to be considered part of the above Progress Note.
[2017-03-14] MEDS: PANTOPRAZOLE 40 MG INJECTION IVP SCH (02:45)
[2017-03-14] MEDS: NS 1,000 ML IV SCH ×2 (02:50→08:46)
[2017-03-14] MEDS: CLINDAMYCIN PB 300 MG/50 ML BAG IV SCH ×4 (04:14→22:18)
[2017-03-14] MEDS: DOXAZOSIN 4 MG TABLET PO SCH (08:25)
[2017-03-14] MEDS: LISINOPRIL 10 MG TABLET PO SCH ×2 (08:25→20:40)
[2017-03-14] MEDS: ALLOPURINOL 300 MG TABLET PO SCH (08:25)
[2017-03-14] MEDS: COLCHICINE 0.6 MG TABLET PO SCH (08:25)
[2017-03-14] MEDS: IBUPROFEN 200 MG TABLET PO PRN ×4 (08:27→20:42)
--- NOTE | 2017-03-14 11:23 | Progress Note ---
<Mireya Barakat D - Last Filed: 03/14/17 11:20> - Date 03/14/17 Subjective: Mr. Strange is seen today in follow up. He is up in chair, eating breakfast. Has visitors, visiting with them. Reports no c/o or concerns. No c/o N/V. Denies any new SOA. Endorses that he is still having some pain and swelling in right foot-"never had gout problems before this." Chart is reviewed for collateral information. Objective Vital signs: Temperature 96.9 F 03/14/17 08:00 Pulse Rate 80 03/14/17 08:00 Respiratory Rate 16 03/14/17 08:00 Blood Pressure 151/102 H 03/14/17 08:00 Pulse Oximetry 95 03/14/17 11:07 Rhythm: Second Degree AV Block Type II Mobitz I Height/Weight/BMI: Height 1.85 m Weight 140.1 kg Body Mass Index 39.8 - Constitutional Present: no acute distress, well nourished, well developed, cooperative - Routine HEENT Exam Head: Present: normocephalic, atraumatic Eye: Present: EOMI, PERRL ENT: Present: mucous membranes moist - Routine Respiratory Exam Present: CTA bilaterally. Absent: rhonchi, wheezes, crackles - Routine Cardiovascular Exam Present: RRR, S1, S2 - Routine Abdominal Exam Present: soft, non tender, distended (Very mild, soft. ). Absent: normoactive bowel sounds (Quiet bowel sounds. ) - Routine Extremities Exam Present: edema, joint swelling (right ankle). Absent: cyanosis, clubbing - Routine Musculoskeletal Exam Musculoskeletal: Present: no clubbing or cyanosis, normal strength, joint swelling. Absent: no tenderness - Routine Skin Exam Present: intact, dry, warm - Routine Neurological Exam Present: alert, oriented X3, moving all extremities - Routine Psychiatric Exam Present: normal affect, normal thought process, cooperative, good insight, good judgment Results - Labs CBC & Chem 7: 03/14/17 11:01 03/11/17 04:41 Microbiology Results: Microbiology 03/12/17 23:20 Peripheral/Iv Start Blood Culture - Preliminary No Growth After 1 Day 03/12/17 23:22 Peripheral/Iv Start Blood Culture - Preliminary No Growth After 1 Day - Echocardiogram Echocardiogram: IMPRESSION 1. Normal LV systolic function, EF of 60% with mild diastolic dysfunction. 2. Mild sclerotic valvular disease without significant aortic valve stenosis. Assessment and Plan (1) Small bowel obstruction Current visit: Yes Status: Acute (2) 2nd degree AV block Current visit: Yes Status: Acute (3) Hypertension Current visit: Yes Status: Acute (4) Morbid obesity Current visit: Yes Status: Acute (5) BPH (benign prostatic hyperplasia) Current visit: Yes Status: Acute (6) Gout Current visit: Yes Status: Acute Assessment and Plan: 03/14/17 Bowel obstruction is slowly improving. Tolerating regular diet. Plan will be for him to have hernia repair upon return home for [place]. Continue to monitor. Repeat labs in AM for stability. He is to have PPM placed tomorrow due to syncope, 2nd degree AVB Type II. Dr. Mensah following. NPO at [place]. Avoid rate suppressing agents. Assess CXR today for pre-op exam. BP is a bit elevated, but has previously been well controlled. Monitor- may need to add Norvasc if remains high. Gout continues to bother him- continue Allopurinol, he declined Colchicine due to GI s/e. PRN Ibuprofen- declined toradol. He has been refusing AM Ativan, will change to PRN dosing. DVT Prophylaxis: SCD's GI Prophylaxis: Protonix Resuscitation Status: Full Code Hospital Course Summary Disclaimer: The visit summary below is not to be considered part of the above Progress Note. Hospital Course: 03/13/17 Patient is maintaining interest in pacemaker placement anticipated Wednesday. Discussed case with Dr. Mensah again today. He states that the patient is scheduled for 11 AM Wednesday assuming that no unexpected delays proposed themselves. Patient's white count continues to decline and blood cultures of been drawn Patient's gout does not have a significant clinical manifestations but he does express some discomfort. He is refuse the Toradol but is taking ibuprofen on a frequent a frequent as needed routine that resembles scheduled maintenance. At this time the small bowel obstruction appears to be resolving itself and patient is on for liquid diet. The plan is to have the hernia surgery performed once he returns home to [place] and is established with local cardiology and surgery 03/14/17 11:31 03/14/17 Bowel obstruction is slowly improving. Tolerating regular diet. Plan will be for him to have hernia repair upon return home for [place]. Continue to monitor. Repeat labs in AM for stability. He is to have PPM placed tomorrow due to syncope, 2nd degree AVB Type II. Dr. Mensah following. NPO at [place]. Avoid rate suppressing agents. Assess CXR today for pre-op exam. BP is a bit elevated, but has previously been well controlled. Monitor- may need to add Norvasc if remains high. Gout continues to bother him- continue Allopurinol, he declined Colchicine due to GI s/e. PRN Ibuprofen- declined toradol. He has been refusing AM Ativan, will change to PRN dosing. <Enmanuel Mcnair P - Last Filed: 03/15/17 18:11> - Date 03/15/17 Objective Vital signs: Temperature 97.8 F 03/15/17 15:42 Pulse Rate 86 03/15/17 18:02 Respiratory Rate 16 03/15/17 15:42 Blood Pressure 183/78 H 03/15/17 18:02 Pulse Oximetry 98 03/15/17 18:02 Height/Weight/BMI: Height 6 ft 1 in Weight 140.1 kg Body Mass Index 39.8 Results - Labs CBC & Chem 7: 03/15/17 04:21 03/15/17 04:21 Microbiology Results: Microbiology 03/12/17 23:20 Peripheral/Iv Start Blood Culture - Preliminary No Growth After 2 Days 03/12/17 23:22 Peripheral/Iv Start Blood Culture - Preliminary No Growth After 2 Days Assessment and Plan (1) Small bowel obstruction Current visit: Yes Status: Acute (2) 2nd degree AV block Current visit: Yes Status: Acute (3) Hypertension Current visit: Yes Status: Acute (4) Morbid obesity Current visit: Yes Status: Acute (5) BPH (benign prostatic hyperplasia) Current visit: Yes Status: Acute (6) Gout Current visit: Yes Status: Acute Assessment and Plan: Seen and examined patient on same day as the above note. Agree with history, physical, assessment and plan. Comprehensive physical findings correlate to the above note. He remains upbeat and very conversant. Seen ambulating the floor today. Denies any complications other than the pain in the hand from his gout. Yet he remains unwilling to start on colchicine due to the side effects of diarrhea. Documented on Dragon speech to text. Efforts to crack speech recognition errors performed, but variation may exist Hospital Course Summary Disclaimer: The visit summary below is not to be considered part of the above Progress Note.
[2017-03-14] MEDS: TAMSULOSIN 0.4 MG CAPSULE PO SCH (20:40)
[2017-03-15] MEDS: CLINDAMYCIN PB 300 MG/50 ML BAG IV SCH ×4 (04:05→22:49)
--- NOTE | 2017-03-15 07:06 | Progress Note ---
DATE OF VISIT 03/13/2017 REASON FOR VISIT Follow bowel obstruction. SUBJECTIVE Kenneth is doing well. He has tolerated clear liquid diet so far. He denies any abdominal pain. He has continued to have bowel movements. They have remained loose. OBJECTIVE VITAL SIGNS: Temperature 97.9. Pulse 55. Blood pressure 136/69. Respiratory rate 16. Oxygen saturation 95% on room air. GENERAL: The patient is awake, alert, in no acute distress. He is dressed in street clothes and seated in a chair. He stands up easily. ABDOMEN: Soft, obese, nontender. While upright, his hernias are full. ASSESSMENT 1. Partial small bowel obstruction secondary to incisional hernia - resolved. 2. Incisional and ventral hernias x 2 - stable. 3. Obesity with BMI of 40. 4. Second-degree AV block. PLAN 1. Advance to full liquid diet for lunch. If he tolerates this, I think he could use a regular dinner. 2. Continue cardiac management per Dr. Mensah. [facility]
--- NOTE | 2017-03-15 07:44 | Progress Note ---
DATE OF VISIT 03/14/2017 REASON FOR VISIT Follow bowel obstruction and hernias. SUBJECTIVE Kenneth is doing well. He tolerated a regular breakfast this morning. He denies any abdominal pain. OBJECTIVE VITAL SIGNS: Temperature 98.0, pulse 56, blood pressure 133/67, respiratory rate 20, oxygen saturation 96% on room air. GENERAL: The patient is awake, alert, in no acute distress. He is seated in a chair. ABDOMEN: Soft, obese, nontender. When he is supine his incisional hernias are both fully reducible. IMPRESSION 1. Partial small bowel obstruction secondary to incisional hernias - resolved. 2. Incisional ventral hernias x 2 - reducible. 3. Obesity with BMI of 40. 4. Second-degree AV block. PLAN 1. Continue regular diet. 2. I did advise repair of his hernias to Kenneth. He is going to work on weight loss and visiting with a surgeon closer to home. 3. I will sign off of Kenneth's case since he is tolerating a regular diet. Please do not hesitate to contact me if I can be of further assistance. CHRIS
[2017-03-15] MEDS: ALLOPURINOL 300 MG TABLET PO SCH (09:22)
[2017-03-15] MEDS: LISINOPRIL 10 MG TABLET PO SCH (09:22)
[2017-03-15] MEDS: DOXAZOSIN 4 MG TABLET PO SCH (09:23)
--- NOTE | 2017-03-15 10:03 | XRay Report ---
Indication: Syncope PROCEDURE: XR chest 2V: Encounter: Initial Comparison: None. Findings: The examination is slightly expiratory in nature. Heart size is normal. The lungs are clear. There is no focal opacity to suggest atelectasis or pneumonia. No mediastinal or hilar adenopathy. No pleural effusion. There is no significant tortuosity of the descending thoracic aorta. There is no significant degenerative changes of the thoracic spine. IMPRESSION: No acute process. .
[2017-03-15] MEDS ORDERED: NS FLUSH BAG 500ml IV PRN (11:27)
[2017-03-15] MEDS ORDERED: FentaNYL 100 MCG/2 ML INJECTION ONE ×2 (13:15→13:42)
[2017-03-15] MEDS ORDERED: BACITRACIN 50,000 UNIT INJECTION ONE (13:16)
[2017-03-15] MEDS ORDERED: MIDAZOLAM 2mg/2ml INJECTION ONE ×3 (13:16→13:43)
[2017-03-15] MEDS ORDERED: SALINE FLUSH 10ml SYRINGE ONE ×3 (13:16→13:34)
[2017-03-15] MEDS ORDERED: LIDOCAINE 1% (10mg/ml) 30ml SDV INJ ONE (13:16)
[2017-03-15] MEDS ORDERED: STERILE WATER FOR INJ 20ML 20 ML ONE (13:31)
[2017-03-15] MEDS ORDERED: CEFAZOLIN 1 G INJECTION ONE (13:31)
[2017-03-15] MEDS ORDERED: LIDOCAINE 2% JELLY (Urojet) 20ml MM ONE (15:30)
[2017-03-15] MEDS: IBUPROFEN 200 MG TABLET PO PRN ×2 (16:29→22:48)
--- NOTE | 2017-03-15 16:32 | XRay Report ---
Indication: post ppm PROCEDURE: XR chest 1V: Encounter: Initial Comparison: 03/14/2017 Findings: The patient has had placement of a left subclavian dual-lead pacemaker. No pneumothorax post pacemaker placement. There is a calcified granuloma in the inferior lateral right lung base superimposed over the anterior right fourth rib. There is mild tortuosity of the descending thoracic aorta. No definite lobar consolidation or pleural effusion. Trachea is midline. No subdiaphragmatic free air. Impression: Left-sided pacemaker in place. No definite pneumothorax. Evidence for prior granulomatous disease with calcific granuloma in the right lung base laterally. .
[2017-03-15] MEDS: HYDRALAZINE 20 MG/ML INJECTION IVP PRN (17:12)
[2017-03-15] MEDS ORDERED: HYDRALAZINE 25 MG TABLET PO ONE (18:34)
[2017-03-15] MEDS: TAMSULOSIN 0.4 MG CAPSULE PO SCH (21:25)
[2017-03-16 00:11] VITALS: RESP 16
[2017-03-16] MEDS: CLINDAMYCIN PB 300 MG/50 ML BAG IV SCH ×2 (04:27→10:23)
[2017-03-16] MEDS: DOXAZOSIN 4 MG TABLET PO SCH (08:36)
[2017-03-16] MEDS: ALLOPURINOL 300 MG TABLET PO SCH (08:37)
--- NOTE | 2017-03-16 08:41 | XRay Report ---
INDICATION: post ppm PROCEDURE: CHEST 2-VIEWS UPRIGHT (PA & LAT) Encounter: Initial COMPARISON: March 15, 2017 FINDINGS: Left dual-lead pacemaker remains in stable position. No visible pneumothorax. Lungs are stable and clear. Right-sided granulomas. Heart size, mediastinal contours and pulmonary vascularity are stable. Impression: Stable appearance of the left pacemaker. .
[2017-03-16] MEDS ORDERED: LISINOPRIL 40 MG TABLET PO SCH (09:00)
--- NOTE | 2017-03-16 11:37 | Discharge Summary ---
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 (2) 2nd degree AV block (3) Hypertension (4) Morbid obesity (5) BPH (benign prostatic hyperplasia) (6) Gout - Procedures Procedures: Date of Exam: 03/11/17 Type of Exam(s): US echo doppler complete DATE OF SERVICE 03/11/2017 INDICATION Presyncope. Second-degree AV block. TECHNICAL QUALITY Technically good 2-D, M-mode, Doppler echocardiographic images were submitted for interpretation. FINDINGS 1. CARDIAC CHAMBERS. All cardiac chamber measurements are normal. Aortic root diameter is normal. RV size and contractility appear normal. 2. LEFT VENTRICLE. Wall thickness is normal. Wall motion analysis is normal. Systolic function is normal. EF is estimated about 60%. There is grade I/IV diastolic dysfunction present. 3. VALVES. Aortic and mitral valve exhibit mild sclerotic changes. Valve excursion is normal. Tricuspid valve structure and motion appear normal. Normal valve excursion. 4. DOPPLER. Analysis shows mild to moderate tricuspid regurgitation with normal systolic PA pressure, trace pulmonic insufficiency, trace mitral regurgitation. Peak flow velocity at the aortic valve of 1.8 m/sec with mean pressure gradient of only 8 mmHg compared with 1.2 m/sec at the LVOT level, which is indicative of nonsignificant aortic stenosis. 5. No evidence of pericardial effusion, intracardiac masses, thrombi, vegetations or shunts. Limited view of IVC suggests normal central venous pressure. IMPRESSION 1. Normal LV systolic function, EF of 60% with mild diastolic dysfunction. 2. Mild sclerotic valvular disease without significant aortic valve stenosis. - Laboratory Labs: 03/16/17 04:10 03/16/17 04:10 Laboratory Tests 03/11/17 03/11/17 04:41 04:41 Hemoglobin A1c 5.1 L Calcium 8.2 L Triglycerides 78 Cholesterol 190 LDL Cholesterol, Calc 137.4 HDL Cholesterol 37 L Cholesterol/HDL Ratio 5.1 H TSH 2.10 Laboratory Tests 03/11/17 03/15/17 04:41 04:21 Magnesium 1.9 Troponin I < 0.012 - Microbiology Microbiology 03/12/17 23:20 Peripheral/Iv Start Blood Culture - Preliminary No Growth After 3 Days 03/12/17 23:22 Peripheral/Iv Start Blood Culture - Preliminary No Growth After 3 Days - Radiology Radiology: Date of Exam: 03/10/17 Ordering Provider: Anai Pham APRN Type of Exam(s): CT abdomen pelvis wo con Reason for Exam(s): abdominal pain EXAM: CT abdomen pelvis wo con DATE: 03/10/2017 HISTORY: abdominal pain COMPARISON: No prior studies are available for comparison TECHNIQUE: CT images were obtained of the abdomen and pelvis without IV contrast. The current CT scan was performed using radiation dose-reduction techniques. FINDINGS: LUNG BASES: No acute parenchymal process is identified. There is a calcified granuloma at the right lung base. Calcified right hilar and subcarinal lymph nodes are visualized. The heart appears mildly enlarged. There is no pericardial effusion. LIVER: Mildly enlarged measuring 19.8 cm showing no obvious discrete lesions on this unenhanced exam. SPLEEN: Mildly enlarged measuring 14.9 cm showing several scattered calcified splenic granulomas. GALLBLADDER: Surgically absent. PANCREAS: Unenhanced appearance is mildly atrophic and otherwise unremarkable. ADRENAL GLANDS: Not enlarged. KIDNEYS: Symmetrical size showing a several bilateral tiny nonobstructing renal calculi. There is nonspecific bilateral perinephric stranding. There is is no evidence of hydronephrosis, hydroureter or ureterolith. VASCULAR: The abdominal aorta and IVC are normal caliber. There is mild scattered plaque formation the abdominal aorta and iliac arteries. LYMPH NODES: No pathologic adenopathy is seen in the abdomen or pelvis. STOMACH BOWEL LOOPS: Stomach is moderately distended with ingested fluid. There is a small hiatal hernia. There is mild dilatation of mid small bowel loops secondary to bilateral para midline supra umbilical ventral hernias have both small bowel and mesenteric fat and involvement. The right-sided ventral hernia is associated with the dilated small bowel loops with air-fluid levels. The right-sided ventral hernia not does not appear to be associated with any obstructive changes of the involved small bowel creating small bowel obstruction. Colonic loops are normal caliber showing moderate retained fecal material. Several diverticula are seen along the course of the colon without evidence of diverticulitis. Appendix is normal. URINARY BLADDER: Normal size showing no wall thickening or intraluminal filling defects. PROSTATE: Enlarged measuring 6.9 x 8.1 cm. There is associated mass effect on the base of the bladder. OSSEOUS STRUCTURES: Advanced degenerative changes are seen at the lumbosacral junction and there are otherwise mild to moderate degenerative disc changes in the lumbar spine region. Moderate degenerative changes are seen in the lower thoracic spine. PERITONEAL CAVITY: No free air or free fluid ABDOMINAL WALL: Bilateral midline supraumbilical ventral hernias which demonstrate mesenteric fat and small bowel involvement. The right-sided ventral hernia associated with the dilated small bowel loops and is likely be etiology of small bowel obstruction. IMPRESSION: 1. Mid small bowel obstruction which appears to be secondary to a ventral abdominal wall hernia. There are bilateral supraumbilical ventral hernias the right-sided hernia appears to be the site of the obstruction. 2. Prostamegaly. 3. Tiny nonobstructing bilateral renal calculi. 4. Cardiomegaly. 5. Old granulomatous disease. 6. Gallbladder is surgically absent. 7. Mild hepatosplenomegaly. Date of Exam: 03/12/17 Ordering Provider: Malcom Freitas MD Type of Exam(s): XR small bowel follow through Reason for Exam(s): small bowel obstruction EXAM: XR small bowel follow through DATE: 03/12/2017 12:00 AM ENCOUNTER: Initial HISTORY: small bowel obstruction COMPARISON: Abdominal radiographs of the same day, abdominal CT 03/10/2017 TECHNIQUE: Single contrast Gastrografin small bowel follow-through was performed with administration of the contrast through the patient's indwelling enteric tube. Sequential overhead evaluation was performed. FINDINGS: The abdominal radiograph of the same day showed a nonobstructive bowel gas pattern. SMALL BOWEL FOLLOW THROUGH FINDINGS: There is normal course and caliber of the duodenal sweep. The ligament of Treitz is seen to the left of the midline. Contrast traverses the small bowel in approximately 1 hour and 15 minutes. The mucosal folds, caliber and position of the small bowel are unremarkable. No constant intraluminal filling defects or areas of stricture are seen. The terminal ileum appears unremarkable. IMPRESSION: Passage of contrast through the small bowel and into the colon within one hour and 15 minutes, without evidence of obstruction.Date of Exam: 03/12/17 Ordering Provider: Malcom Freitas MD Type of Exam(s): XR KUB w upright Reason for Exam(s): Follow Bowel Obstruction EXAM: XR KUB w upright DATE: 03/12/2017 8:01 AM Encounter: Initial INDICATION: Follow Bowel Obstruction COMPARISON: Abdominal CT 03/10/17 Technique: Upright and supine AP abdominal radiographs were obtained. Findings: Enteric tube in place with tip in the proximal stomach. Mild to moderate colonic gas and stool. Mildly prominent gas filled small bowel loops in the left mid abdomen. No intraperitoneal free air. Cholecystectomy clips noted. No acute osseous abnormality identified. The visualized lung bases appear clear. Impression: Mildly prominent gas filled small bowel loops in the left mid abdomen with mild to moderate colonic gas and stool present, with an overall non-obstructive bowel gas pattern radiographically. Date of Exam: 03/16/17 Ordering Provider: Halley Mensah MD Type of Exam(s): XR chest 2V Reason for Exam(s): post ppm INDICATION: post ppm PROCEDURE: CHEST 2-VIEWS UPRIGHT (PA & LAT) Encounter: Initial COMPARISON: March 15, 2017 FINDINGS: Left dual-lead pacemaker remains in stable position. No visible pneumothorax. Lungs are stable and clear. Right-sided granulomas. Heart size, mediastinal contours and pulmonary vascularity are stable. Impression: Stable appearance of the left pacemaker. History of Present Illness HPI: This 72-year-old man who had an episode of lightheadedness and syncope yesterday was brought into the emergency room. Found to have new onset obits type II heart block. Flat pain from prior to syncopal episode was relative to the colicky chronic abdominal hernia. Seen this morning after being brought in he is comfortable and has no complaints. Abdominal pain is empty significantly in he is denying any chest pain diaphoresis nausea or shortness of breath. The following notation by Dr. 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 (played with [employer] etc). Anyway he had an appendectomy young in life and approximately 12 years ago had a bowel obstruction that resulted in adhesiolysis. Since then he has had an abdominal wall hernia related to previous surgeries. 3 days ago he had onset of abdomen pain with nausea and anorexia. He was in contact with a local surgeon (friend) who recommenced that he be seen in local ED for further assessment. 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 He was brought to the ED where his initial cardiac evaluation demonstrated a mobitz 2 rhythm without ischemia. He further had a CT of his abdomen which demonstrated a SBO. ED contacted surgeon who recommended admission and he would see in consult. ED consulted cardiology who supported the interpretation of a mobitz 2. Recommended admission into the ICU and would see in the am. The patient has never had a syncopal episode and never been informed that he had an arrhythmia in his heart. Objective Vital signs: Temperature 98.0 F 03/16/17 08:39 Pulse Rate 60 03/16/17 08:39 Respiratory Rate 16 03/16/17 08:39 Blood Pressure 171/91 H 03/16/17 08:39 Pulse Oximetry 97 03/16/17 08:39 Height/Weight/BMI: Height 1.85 m Weight 140.1 kg Body Mass Index 39.8 - Constitutional Present: well nourished, well developed - Routine Respiratory Exam Present: CTA bilaterally. Absent: wheezes - Routine Cardiovascular Exam Present: RRR, S1, S2. Absent: murmur - Routine Abdominal Exam Present: soft, normoactive bowel sounds, non distended. Absent: tenderness - Routine Extremities Exam Present: edema (R>L (due to recent gout flare)), normal capillary refill - Routine Skin Exam Present: dry, warm - Routine Neurological Exam Present: alert, oriented X3, CN II-XII intact - Routine Lymphatic Exam Lymphatic: Absent: adenopathy - Routine Psychiatric Exam Present: normal affect, cooperative Hospital Course This is a general summary of the patient's hospital course. For more details refer to the complete medical record. Hospital course: Patient was admitted to the CCU for secondary heart block and possible small bowel obstruction. He had cardiology consult with Dr. Mensah who recommended echocardiogram and permanent pacemaker implantation. Lisinopril was added for uncontrolled hypertension. He did go ahead with dual-chamber pacemaker implantation on 03/15/17 with no complications. Prior to dismissal he was pacing in the right ventricle about 100 percent of the time. Patient plans to follow-up with road inspector in [place] when he gets back. Dr. Freitas was consulted for possible small bowel obstruction. NG tube placed. Gastrografin study was performed 03/12/17 showing no evidence of obstruction. His diet was slowly advanced and by dismissal he was able to pass a small amount of stool and had minimal pain. Patient plans to follow-up with surgeon in [place] to electively have his incisional ventral hernias repaired to hopefully prevent future recurrence. During his stay he had an elevated white blood cell count and slight fever. Blood cultures were drawn and have shown no growth to date. By discharge his white blood cell count was normal. He also had a gout flare while here. He is on allopurinol daily, but declined Toradol or colchicine for acute treatment. Time spent with patient: greater than 35 minutes Discharge Plan - Discharge Disposition Discharge Date: 03/16/17 Disposition: 01 Discharged Home, Self-Care *Condition: Stable *Reason For Visit: Small bowel obs,2nd degree heart block type 2 - Discharge Medications *Discharge Medications: New Ibuprofen [Motrin] 600 mg PO Q6H PRN tablet PRN Reason: Pain Clindamycin [Cleocin] 300 mg PO TID 5 Days #15 cap Lisinopril [Prinivil] 40 mg PO DAILY #30 tab Continue Tamsulosin [Flomax] 0.4 tab PO HS Allopurinol [Zyloprim] 1 tab PO DAILY Doxazosin Mesylate [Cardura] 4 mg PO DAILY - Discharge Packet/Instructions *Diet: Cardiac *Activity: Do not raise arm on affected side above shoulder for 2 weeks. No swimming for 2 wks. no fishing using L arm , or golfing for 6 wks. No large arm swings such as golf *Pain Management/Treatment: Tylenol 650 mg every 6 hours. See prescription *Wound Care: Open to air. No shower for 5 days. Sponge bath is ok. Leave steri-strips on for 30 days. Keep pacemaker site dry and clean Additional Instructions: Take Clindamycin antibiotic x 5 days. Follow up with your road inspector and GI doctor at home as planned. *Expected Signs/Symptoms: Mild pain and bruising *Notify Physician if: Severe pain, redness, drainage, fever or chills, chest pain (not including incision pain), shortness or air or severe swelling. *During Business Hours Contact: Please call the (road inspector) physician's office at [phone] *After Business Hours Contact: Please call [phone] and have the hydrogenation operator page the physician (road inspector) *Pending Lab/Results: No Pending Lab - Referrals/Follow Up - Patient Handouts Patient Handouts: [facility] Pacemaker, Bowel Obstruction (DC) - Dismissal Complete Discharge Instructions are:: Complete <Enmanuel Mcnair - Last Filed: 03/16/17 20:36> Discharge Information Date of admission: 03/11/17 00:58 Attending Physician: Enmanuel Mcnair MD Consults: 03/11/17 02:29 Physician Consult [CONS] Routine Consulting Provider: Malcom Freitas Reason For Exam: SBO Ordering Provider has Notified Wood Tile Installer: Yes - Discharge Diagnosis (1) Small bowel obstruction Status: Resolved (2) 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 (3) Hypertension Status: Chronic (4) Morbid obesity Status: Chronic (5) BPH (benign prostatic hyperplasia) Status: Chronic (6) Gout Status: Chronic - Laboratory Labs: 03/16/17 04:10 03/16/17 04:10 - Microbiology Microbiology 03/12/17 23:20 Peripheral/Iv Start Blood Culture - Preliminary No Growth After 3 Days 03/12/17 23:22 Peripheral/Iv Start Blood Culture - Preliminary No Growth After 3 Days Objective Vital signs: Temperature 97.9 F 03/16/17 12:00 Pulse Rate 68 03/16/17 12:30 Respiratory Rate 16 03/16/17 12:00 Blood Pressure 159/76 H 03/16/17 12:00 Pulse Oximetry 96 03/16/17 12:00 Height/Weight/BMI: Height 6 ft 1 in Weight 140.1 kg Body Mass Index 39.8 Hospital Course This is a general summary of the patient's hospital course. For more details refer to the complete medical record. Hospital course: Seen and examined patient on same day as the above note. Agree with summary, physical, assessment and discharge plan. Comprehensive physical findings correlate to the above note. A notedly pleasant patient to have on the service. Documented on [employer] speech to text. Efforts to correct speech recognition errors performed, but variation may exist
[2017-03-16 12:24] VITALS: BP 159/76; TEMP 97.9; O2SAT 96
[2017-03-16 12:45] VITALS: PULSE 68
--- NOTE | 2017-03-16 13:22 | Cardiology Progress Note ---
Subjective Interval history: feeling well, denies cp, dyspena or dizziness. has been walking down the [place] multiple times . He's feeling quite well denies incisional pain denies needing pain medicine. No fever or chills. A chest x-ray shows normal dual-chamber pacemaker position without evidence of complications no pneumothorax good pacemaker lead position EKG shows AV paced rhythm PACs Pacemaker check shows normal function about 100% V paced Labs all look good stable CBC blood cultures remain negative Exam Vital signs: Temperature 97.9 F 03/16/17 12:00 Pulse Rate 68 03/16/17 12:30 Respiratory Rate 16 03/16/17 12:00 Blood Pressure 159/76 H 03/16/17 12:00 Pulse Oximetry 96 03/16/17 12:00 Serial physical examination: The INR was in the week that he would recommend - Constitutional no acute distress, obese, cooperative - Routine HEENT Exam Head: Present: normocephalic - Routine Neck Exam Absent: JVD, lymphadenopathy, thyromegaly - Routine Chest/Breast/Axilla Exam Chest wall: Present: pacemaker (incision looks excellent healing well well approximated and no erythema no discharge and no unexpected / significant swelling or tenderness. No hematoma) - Routine Respiratory Exam Present: CTA bilaterally - Routine Cardiovascular Exam Present: RRR, no murmur - Routine Abdominal Exam Present: soft, normoactive bowel sounds, non distended - Routine Extremities Exam Present: pulses intact, normal capillary refill. Absent: cyanosis, clubbing, edema - Routine Skin Exam Present: intact, petechiae (slight this about 2 inches below pacemaker incision) . Absent: cyanosis, erythema, dry - Routine Neurological Exam Present: alert, oriented X3, CN II-XII intact, moving all extremities, hearing grossly intact, normal speech. Absent: motor deficit, hemineglect, facial asymmetry - Routine Psychiatric Exam Present: normal affect, normal thought process, good insight, good judgment - Urinary Catheter Management Straight Cath placed during this visit: yes, but has since been removed by the nurse Insertion date: 03/15/17 Insertion time: 15:30 Removal date: 03/15/17 Removal time: 15:40 Assessment and Plan - Assessment and Plan (1) 2nd degree AV block Current visit: Yes Status: Chronic Status post dual-chamber permanent pacemaker implant doing quite well Electronic check today showed normal sensing and pacing parameters, pacing in the RV about 100% of the time. Explained to the patient might need a future of grade 4 biventricular pacemaker, should LV function at drops with RV pacing in the future. He's going to start with a service cashier in [place]. Routine post pacemaker instructions restrictions were provided in detail to the patient routine care and what to look for also pleasant having outpatient treadmill stress test at some point due to his risk factors Instructed in healthy A habits dietary habits and activity He's planning to fly out of town on a private airplane within next 24 hours he' ll have his pacemaker incision check locally is with a service cashier or his primary care provider until he gets an with a service cashier. He will be receiving 5 days more of clindamycin by mouth and instrument raising by mouth Tylenol when necessary, no need for narcotics especially with his recent small bowel obstruction I specifically asked him not to go fishing using his left arm for the next 6 weeks, in fear of a pacemaker lead dislodgment (2) Small bowel obstruction Current visit: Yes Status: Resolved (3) Hypertension Current visit: Yes Status: Chronic doing better (4) Morbid obesity Current visit: Yes Status: Chronic (5) BPH (benign prostatic hyperplasia) Current visit: Yes Status: Chronic (6) Gout Current visit: Yes Status: Chronic Hospital Course Summary Disclaimer: The visit summary below is not to be considered part of the above Progress Note. Hospital Course: 03/13/17 Patient is maintaining interest in pacemaker placement anticipated Wednesday. Discussed case with Dr. Mensah again today. He states that the patient is scheduled for 11 AM Wednesday assuming that no unexpected delays proposed themselves. Patient's white count continues to decline and blood cultures of been drawn Patient's gout does not have a significant clinical manifestations but he does express some discomfort. He is refuse the Toradol but is taking ibuprofen on a frequent a frequent as needed routine that resembles scheduled maintenance. At this time the small bowel obstruction appears to be resolving itself and patient is on for liquid diet. The plan is to have the hernia surgery performed once he returns home to [place] and is established with local cardiology and surgery 03/14/17 11:31 03/14/17 Bowel obstruction is slowly improving. Tolerating regular diet. Plan will be for him to have hernia repair upon return home for [place]. Continue to monitor. Repeat labs in AM for stability. He is to have PPM placed tomorrow due to syncope, 2nd degree AVB Type II. Dr. Mensah following. NPO at [place]. Avoid rate suppressing agents. Assess CXR today for pre-op exam. BP is a bit elevated, but has previously been well controlled. Monitor- may need to add Norvasc if remains high. Gout continues to bother him- continue Allopurinol, he declined Colchicine due to GI s/e. PRN Ibuprofen- declined toradol. He has been refusing AM Ativan, will change to PRN dosing.
--- NOTE | 2017-03-18 07:25 | Consultation ---
DATE OF CONSULTATION 03/11/2017 CONSULTING PHYSICIAN Malcom Freitas MD REQUESTING PHYSICIAN Dr. Juan Swanson REASON FOR CONSULTATION Small bowel obstruction. 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 On Wednesday he was doing fine. He had minimal intake at lunch on Wednesday. He noticed some abdominal cramping. By Wednesday dinner, he was having more problems. He was up all night and said that he was "hurting tremendously". His pain was 10/10 in severity and his pain was located in the central abdomen. He had waves of pain. On Wednesday he had nausea and vomiting that he developed in the evening. He had tried to speak earlier in the day and felt faint, so he had to go back to the hotel and rest. This was a near syncopal episode, but he did not actually pass out. He had been admitted to the hospital under the hospitalist service due to an initial cardiac evaluation that had demonstrated a Mobitz II rhythm. He also had had a CT scan the abdomen that showed ventral hernias as a source of partial small bowel obstruction. PAST MEDICAL HISTORY 1. Small bowel obstruction secondary to adhesions - 2002. This was managed operatively. 2. Hypertension. 3. Gout. 4. Benign prostatic hypertrophy. 5. Morbid obesity. PAST SURGICAL HISTORY 1. Open appendectomy for perforated appendicitis - 1976. 2. Exploratory laparotomy for small bowel obstruction - 2002. 3. Minimally invasive back surgery at the L4-L5 level - in the . ALLERGIES Shrimp. MEDICATIONS The patients medications were reviewed. See the hospital MAR. SOCIAL HISTORY The patient is a never smoker. He drinks alcohol on holidays or special occasions only. He is . 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 FAMILY HISTORY The patient never knew his father. His mother had pancreatic cancer but no history of heart disease. 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 MUSCULOSKELETAL: He has reported some joint pain due to gout. PHYSICAL EXAMINATION VITAL SIGNS: Temperature 98.7, pulse 88, blood pressure 190/83, respiratory rate 20, oxygen saturation 95% on room air. GENERAL: The patient is awake, alert, in no acute distress. HEENT: Sclerae clear. Extraocular muscles intact. He does have an NG tube in place. HEART: Regular rate and rhythm. LUNGS: Clear to auscultation bilaterally. ABDOMEN: Soft, obese, minimally diffusely tender. There are two incisional hernias with one extending to the right abdomen more superiorly and one extends to the left at the level of the umbilicus. Both of these hernias are reducible and bowel sounds are noted during reduction of the hernias. EXTREMITIES: No clubbing, cyanosis or edema. NEURO: Cranial nerves II-XII are grossly intact. PSYCHIATRIC: Normal mood and affect. LABORATORY DATA White blood cell count has decreased from 14.2 down to 13.7. IMAGING CT scan of the abdomen and pelvis was personally reviewed by me. There is a 3.3 x 5 cm fascial defect about 7 cm superior to the umbilicus. There is 2.5 x 4 cm fascial defect 2.5 cm above the umbilicus. IMPRESSION 1. Incisional ventral hernias x 2 - reducible. 2. Partial small bowel obstruction related to incisional ventral hernia. 3. Bradycardia due to second-degree AV block. RECOMMENDATIONS 1. I would attempt conservative management since I think this has an 80% success rate given the patient's clinical scenario. 2. He should continue NG tube decompression and n.p.o. status until bowel obstruction resolves. 3. If he does need operative intervention he will need a temporary pacemaker placed. 4. I did discuss the case with Dr. Mensah today. PATIENT EDUCATION The diagnoses of partial small bowel obstruction and incisional hernia were discussed with the patient and his friend who was present. I did explain that I thought he would need future repair of his hernias but that he would benefit from weight loss first. I also explained that I would try nonoperative management for his bowel obstruction since his hernias were reducible and his problem would most likely resolve spontaneously with bowel rest. He was in agreement with observation and conservative management for now. CHRIS
== END 2017-03-16 14:10 | disposition home or self-care (01) | DRG 394 ==
LOC: ED 22:32 → SUATTDRO 03-11 00:58 → CCU 03-11 00:58 → SRG 03-12 20:22
PROVIDERS: ADMIT Emergency Medicine; ATTEND Family Medicine